=== PATIENT | female | born 1990 | race Caucasian/White ===

== ENCOUNTER 2017-06-15 23:23 | Emergency (ER) | payer MEDICAID ==
[2017-06-16] MEDS: IBUPROFEN 600 MG TAB PO (03:36)
== END 2017-06-16 04:03 | disposition home or self-care (01) ==
LOC: FTE 23:23
DX: J06.9 Acute upper respiratory infection, unspecified (principal); F17.210 Nicotine dependence, cigarettes, uncomplicated
CPT/HCPCS: 99283; Z7502

== ENCOUNTER 2019-01-15 19:44 | Inpatient (IN) | payer MEDICAID ==
[2019-01-15 20:35] LABS: ADD UMIC YES; UR ASCORBIC ACID 20 mg/dL (NEGATIVE); UR BACTERIA FEW /HPF (NONE SEEN); UR BILIRUBIN (Dip) NEGATIVE (NEGATIVE); UR BLOOD (Dip) 2+ mg/dL (NEGATIVE); UR CLARITY SLIGHTLY CLOUDY (CLEAR); UR COLOR YELLOW (YELLOW); UR GLUCOSE (Dip) NEGATIVE (NEGATIVE); UR KETONES (Dip) NEGATIVE (NEGATIVE); UR LEUKOCYTE ESTERASE (Dip) NEGATIVE Leu/ul (NEGATIVE); UR MUCUS FEW /HPF (NONE SEEN); UR NITRITE (Dip) NEGATIVE (NEGATIVE); UR RBC 2 /HPF (0-5); UR SPECIFIC GRAVITY (Dip) 1.023 (1.003-1.030); UR SQUAMOUS EPITHELIAL CELL FEW /HPF (FEW); UR TOTAL PROTEIN (Dip) NEGATIVE (NEGATIVE); UR UROBILINOGEN (Dip) NEGATIVE (NEGATIVE); UR WBC 4 /HPF (0-5)
[2019-01-15] MEDS: LACTATED RINGER'S 1,000 ML IV ×2 (22:09→22:51)
[2019-01-15] MEDS: TERBUTALINE 1 MG/ML INJ SC (23:22)
[2019-01-16] MEDS: TERBUTALINE 1 MG/ML INJ SC (00:52)
== END 2019-01-16 05:40 | disposition home or self-care (01) | DRG 833 ==
LOC: OBT 19:44 → L-D 19:46 → OBT 22:57 → L-D 22:57
DX: O47.03 False labor before 37 completed weeks of gestation, third trimester (principal); Z3A.29 29 weeks gestation of pregnancy
CPT/HCPCS: 36415; 76817; 76818; 81001